=== PATIENT | male | born 1950 | race Caucasian/White ===

== ENCOUNTER → 2017-03-16 | Outpatient (CLI) | payer BC ==
--- NOTE | 2017-03-16 17:21 | PCVCIMAG ---
APPROVED REPORT Exam: Stress Echocardiogram Indication: Hypertension, Hyperlipidemia,elev cor ca score Patient Location: Echo lab Stress Nurse: Johanne Lux RN Status: routine Ht: 5 ft 11 in HR: 55 bpm BP: 106/58 mmHg Rhythm: Bradycardia Medical History Medical History: CAD non obstructive, Hyperlipidemia, HTN Cardiac Risk Factors: FHX of CAD, Hyperlipidemia Pretest Chest Pain Characteristics: No chest pain Exercise History: Physically active Procedure The patient underwent an Exercise Stress Test using the Chas Protocol. Blood pressure, heart rate, and EKG were monitored. An Echocardiogram was performed by plant facilities technician in four stages in quad fashion. At peak stress, four selected images were obtained and placed side by side with resting images for comparison. Stress Test Details Stress Test: Exercise stress testing was performed using a Hcas protocol. HR Resting HR: 55 bpmMax Heart Rate (APMHR): 153 bpm Max HR Achieved: 141 bpmTarget HR (85% APMHR): 130 bpm % of APMHR: 92 Recovery HR: 78 bpm HR response to stress: Normal HR response to stress BP Resting BP: 106/58 mmHg Max BP: 172/70 mmHg Recovery BP: 122/66 mmHg ECG Resting ECG: Sinus Rhythm Stress ECG: Sinus Rhythm ST Change: Non-ischemic Maximum ST Deviation: 1.25 mm Arrhythmia: occasional PACs,rare PVCs Recovery ECG: Sinus Rhythm Recovery ST Change: Non-ischemic Recovery ST Deviation: 0.25 mm Recovery Arrhythmia: None Clinical Reason for Termination: Maximal effort Stress Symptoms: none Exercise duration: 11 min 37 sec Highest Stage Achieved: Stage 4: 4.2 mph at 16% grade. Exercise capacity: 13.7 METs Overall Exercise Capacity for Age: Good Angina Score: None Stress ECG Conclusion The patient exercised according to the CHAS protocol for 11:37 mins, achieving a work level of Max. METS:13.7 . The resting heart rate of 55 bpm tanika to a maximal heart rate of 141 bpm. This value represents 92 % of the maximal, age-predicted heart rate. The resting blood pressure of 106/58 mmHg, tanika to a maximum blood pressure of 172/70 mmHg. The exercise test was stopped due to fatigue. Chairez Treadmill Score is 4.8 which is Moderate risk. Pre-Stress Echo The resting Echocardiogram showed normal left ventricular contractility with an estimated Ejection Fraction of about 55%. Normal wall motion in all segments on baseline images. Post-Stress Echo The stress Echocardiogram showed normal left ventricular contractility with an estimated Ejection Fraction of about 65-70%. Normal augmentation of wall motion in all segments on post stress images. Clinical No clinical or ECG evidence for ischemia. Conclusion Clinical Response: Non-ischemic Exercise Capacity: Superior Stress ECG Response: Non-ischemic Stress Echo Images: Non-ischemic No clinical, EKG or echocardiographic evidence for ischemia. No echocardiographic evidence for exercise induced ischemia. Normal stress echocardiogram with maximal exercise stress. <Conclusion> No clinical, EKG or echocardiographic evidence for ischemia. No echocardiographic evidence for exercise induced ischemia. Normal stress echocardiogram with maximal exercise stress.
== END | disposition home or self-care (01) ==
LOC: PCVCIMAG 15:23
PROVIDERS: ATTEND Internal Medicine Cardiovascular Disease
DX: I25.10 Atherosclerotic heart disease of native coronary artery without angina pectoris (principal); E78.5 Hyperlipidemia, unspecified; I10 Essential (primary) hypertension; R93.1 Abnormal findings on diagnostic imaging of heart and coronary circulation; I49.3 Ventricular premature depolarization; Z82.49 Family history of ischemic heart disease and other diseases of the circulatory system
CPT/HCPCS: 93325; 93351